=== PATIENT | female | born 1990 | race Caucasian/White ===

== ENCOUNTER 2018-02-08 13:30 | Emergency (ER) | payer BC ==
[2018-02-08 14:25] VITALS: BP 123/73
--- NOTE | 2018-02-08 15:19 | UC ---
Respiratory Complaint HPI - HPI Summary HPI Summary: 27 y/o female presents to the urgent care c/o sinus congestion, sinus pain and B /L ear fullness for the past week. Symptoms started as a common cold and are worsening for the past 3 days. Now w/ green nasal discharge, sore throat. Pain w/ swallowing is 4/10. She has taking Nyquill and Dayquill PO to alleviate symptoms. Pain w/ swallowing is 5/10 and associated w/ B/L ear pressure and + PND w/ a dry cough. Pt denies fever, SOB, klaus pain, abdominal pain, N/V/D - History of Current Complaint Chief Complaint: UCGeneralIllness Stated Complaint: CONGESTION,SORE THROAT,EAR PAIN Time Seen by Provider: 02/08/18 15:12 Hx Obtained From: Patient Hx Last Menstrual Period: 01/12/18 ?: No Onset/Duration: Gradual Onset, Lasting Weeks - 1 week, Still Present, Worse Since - 3 days Timing: Constant Severity Initially: Mild Severity Currently: Moderate Pain Intensity: 5 Pain Scale Used: 0-10 Numeric Character: Cough: Productive, Sputum Description: - yellowish Aggravating Factors: Recumbent Position Alleviating Factors: Nothing Associated Signs And Symptoms: Positive: Chills, URI, Nasal Congestion, Hoarseness, Sinus Discomfort. Negative: Fever, Wheezing - Risk Factors Pulmonary Embolism Risk Factors: Negative Cardiac Risk Factors: Negative Pseudomonas Risk Factors: Negative Tuberculosis Risk Factors: Negative - Allergies/Home Medications Allergies/Adverse Reactions: Allergies Allergy/AdvReac Type Severity Reaction Status Date / Time No Known Allergies Allergy Verified 02/08/18 14:24 Home Medications: Home Medications Methylphenidate HCl [Concerta] 72 mg PO DAILY 02/08/18 [History Confirmed ] Methylphenidate TAB* [Ritalin TAB*] 10 mg PO BID 02/08/18 [History Confirmed 02/20] PMH/Surg Hx/FS Hx/Imm Hx Previously Healthy: Yes Other Psychological History: ADHD - Surgical History Surgical History: Yes Surgery Procedure, Year, and Place: T&A - Family History Known Family History: Positive: Cardiac Disease, Hypertension, Diabetes Family History: Breast cancer, prostate cancer - Social History Occupation: Employed Full-time Lives: With Family Alcohol Use: Weekly Substance Use Type: None Smoking Status (MU): Former Smoker Review of Systems Constitutional: Negative Skin: Negative Eyes: Negative ENT: Sore Throat, Ear Ache - B/L ear pressure, Nasal Discharge - green, Sinus Congestion, Sinus Pain/Tenderness Respiratory: Cough - dry Cardiovascular: Negative Gastrointestinal: Negative Genitourinary: Negative Motor: Negative Neurovascular: Negative Musculoskeletal: Negative Neurological: Headache Is Patient Immunocompromised?: No All Other Systems Reviewed And Are Negative: Yes Physical Exam - Summary Physical Exam Summary: Vitals: reviewed General: Well developed, well-nourished female patient with NAD. Head and face: Normocephalic and atraumatic, Positive tenderness over the frontal and maxillary sinuses.. Eyes: PERRLA, EOMI x 2. Normal conjunctiva. No eye discharge. ENT: Ears and TM with normal limits. Nose: edematous and erythematous nasal mucosa with with yellowish discharge and erythematous mucosa. Pharynx with erythema, no exudate. +PND green Neck: Supple, no JVD, no carotid bruits and no lymphadenopathy. Lungs: clear, no rales, no rhonchi, no wheezes. CVS: RRR, S1 and S2 present no murmurs or gallops appreciated. Abdomen: soft nontender with positive bowel sounds. Extremities: no edema noted. Neuro: WNL. Skin: warm and dry Triage Information Reviewed: Yes Vital Signs: Initial Vital Signs Temp 99.2 F 02/08/18 14:19 Pulse 68 02/08/18 14:19 Resp 18 02/08/18 14:19 BP 123/73 02/08/18 14:19 Pulse Ox 100 02/08/18 14:19 Diagnostic Evaluation - Laboratory O2 Sat by Pulse Oximetry: 100 Respiratory Course/Dx - Course Course Of Treatment: 27 y/o female presents to the urgent care c/o sinus congestion, sinus pain and B/L ear fullness for the past week. Symptoms started as a common cold and are worsening for the past 3 days. Now w/ green nasal discharge, sore throat. Pain w/ swallowing is 4/10. She has taking Nyquill and Dayquill PO to alleviate symptoms. Pain w/ swallowing is 5/10 and associated w/ B/L ear pressure and + PND w/ a dry cough. Pt denies fever, SOB, klaus pain, abdominal pain, N/V/D. Hx obtained. Pt with 1 week of symptoms getting worse. Pt Rx Augmentin PO and flonase nasal spray. Discharge instructions explained to Pt. Advised to Return to the clinic or PCP if symptoms do not improve.Pt understood and agreed with plan of care. - Differential Dx/Diagnosis Differential Diagnosis/HQI/PQRI: Bronchitis, Influenza, Laryngitis, Lower Resp Infection, Sinusitis, Other - URI, pharyngitis Provider Diagnoses: 1- Acute bacterial sinusitis Discharge - Sign-Out/Discharge Documenting (check all that apply): Discharge/Admit/Transfer - D/C home - Discharge Plan Condition: Stable Disposition: HOME Prescriptions: Amoxicillin/Clavulanate TAB* [Augmentin TAB 875*] 875 mg PO BID #20 tab Fluticasone NASAL SPRAY 50MCG* [Flonase NASAL SPRAY 50MCG*] 2 spray BOTH NARES DAILY #1 btl Patient Education Materials: Sinusitis (ED) Forms: *Work Release Referrals: [facility] [Outside] - If Needed Non Staff,Doctor [Primary Care Provider] - Additional Instructions: 1- Please increase fluid intake and rest. take full course of antibiotic to avoid resistance 2-Use Flonase as directed to help drain fluid. Also buy saline drops to clear sinuses 3-Return to the clinic or PCP if symptoms do not improve for further management and treatment - Billing Disposition and Condition Condition: STABLE Disposition: Home
== END 2018-02-08 15:36 | disposition home or self-care (01) ==
LOC: UCCORT 13:30
DX: J01.90 Acute sinusitis, unspecified (principal); B96.89 Other specified bacterial agents as the cause of diseases classified elsewhere; F90.9 Attention-deficit hyperactivity disorder, unspecified type; Z87.891 Personal history of nicotine dependence
CPT/HCPCS: 99202; G0463

== ENCOUNTER 2019-04-22 12:02 | Emergency (ER) | payer SELFPAY ==
[2019-04-22 12:34] VITALS: BP 142/95
--- NOTE | 2019-04-22 12:55 | UC ---
Allergic Reaction HPI - HPI Summary HPI Summary: Pt presents with c/o episodic chest tightness s/p having an anaphylactic reaction while on vacation in [place]. reaction occurred 8 days ago. Pt states she had multiple doses of epinephrine, and had rebound 24 hours post initial treatment. Pt was given antihistamine, oral steroids, and two epi pens. 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 - History of Current Complaint Chief Complaint: UCAllergicReaction Stated Complaint: CHEST TIGHTNESS - ALLERGIC REACTION Time Seen by Provider: 04/22/19 12:12 Hx Obtained From: Patient Hx Last Menstrual Period: today ?: No Onset/Duration: Sudden Onset, Lasting Days Severity Initially: Severe Severity Currently: Mild Pain Intensity: 5 Character: Swelling, Pruritus Aggravating Factor(s): Other - pine apple and prickly pear Alleviating Factor(s): Antihistamines, Epinephrine Associated Signs And Symptoms: Positive: Difficulty Breathing, Throat Tightening - Related Hx Possible Reaction To: Food - Allergies/Home Medications Allergies/Adverse Reactions: Allergies Allergy/AdvReac Type Severity Reaction Status Date / Time prickly pear Allergy Anaphylatic Uncoded 04/22/19 12:16 Shock tropical fruit Allergy suspected, Uncoded 04/22/19 12:16 after prickly pear reaction Home Medications: Home Medications Betametasone 1 mg PO DAILY 04/22/19 [History] Ebastina Antihistamine 10 Mg 1 tab PO DAILY 04/22/19 [History] diphenhydrAMINE HCl [Benadryl Allergy] 50 mg PO Q24H PRN 04/22/19 [History Confirmed 04/22/19] PMH/Surg Hx/FS Hx/Imm Hx Previously Healthy: Yes - Surgical History Surgical History: Yes Surgery Procedure, Year, and Place: T&A - Family History Known Family History: Positive: Cardiac Disease, Hypertension, Diabetes Family History: Breast cancer, prostate cancer - Social History Occupation: Employed Full-time Lives: With Family Alcohol Use: Weekly Alcohol Amount: 1 wine Substance Use Type: None Smoking Status (MU): Heavy Every Day Tobacco Smoker Have You Smoked in the Last Year: Yes - Immunization History Vaccination Up to Date: Yes Review of Systems All Other Systems Reviewed And Are Negative: Yes Constitutional: Positive: Negative Skin: Positive: Negative Eyes: Positive: Negative ENT: Positive: Negative Respiratory: Positive: Other - chest tightness Cardiovascular: Positive: Negative Gastrointestinal: Positive: Negative Genitourinary: Positive: Negative Motor: Positive: Negative Neurovascular: Positive: Negative Musculoskeletal: Positive: Negative Neurological: Positive: Negative Psychological: Positive: Negative Is Patient Immunocompromised?: No Physical Exam Triage Information Reviewed: Yes Appearance: Well-Appearing Vital Signs: Initial Vital Signs Temp 98.1 F 04/22/19 12:25 Pulse 87 04/22/19 12:25 Resp 16 04/22/19 12:25 BP 142/95 04/22/19 12:25 Pulse Ox 100 04/22/19 12:25 Vital Signs Reviewed: Yes Eye Exam: Normal ENT Exam: Normal ENT: Positive: Normal ENT inspection Dental Exam: Normal Neck exam: Normal Respiratory Exam: Normal Cardiovascular Exam: Normal Musculoskeletal Exam: Normal Neurological Exam: Normal Psychological Exam: Normal Skin Exam: Normal Allergic Reaction Course/Dx - Course Course Of Treatment: I discussed with the pt the need to follow up with an clinical rehabilitation specialist and I discussed the possibility of having episodic anxiety related to event. Pt denies anxiety and agreed to follow up with clinical rehabilitation specialist. - Differential Dx/Diagnosis Differential Diagnosis/HQI/PQRI: Anaphylaxis Provider Diagnosis: Allergic reaction Discharge - Sign-Out/Discharge Documenting (check all that apply): Patient Departure All imaging exams completed and their final reports reviewed: No Studies - Discharge Plan Condition: Stable Disposition: HOME Prescriptions: EPINEPHrine [Epipen 2-Jayy] 0.3 mg IM ONCE #1 inj predniSONE TAB* [Deltasone 10 MG TAB*] 10 mg PO DAILY #5 tab raNITIdine HCl [Zantac] 150 mg PO DAILY #7 tablet Patient Education Materials: Anaphylaxis (ED), Allergies (ED) Referrals: Adolph Cristobal MD [Medical Doctor] - As Soon As Possible Carmine May MD [Medical Doctor] - As Soon As Possible No Primary Care Phys,NOPCP [Primary Care Provider] - - Billing Disposition and Condition Condition: STABLE Disposition: Home
== END 2019-04-22 13:16 | disposition home or self-care (01) ==
LOC: UCCORT 12:02
DX: T78.1XXS Other adverse food reactions, not elsewhere classified, sequela (principal); R07.89 Other chest pain; X58.XXXS Exposure to other specified factors, sequela; F17.210 Nicotine dependence, cigarettes, uncomplicated
CPT/HCPCS: 99212; G0463